=== PATIENT | female | born 1985 | race American Indian/Alaskan Native ===

== ENCOUNTER 2018-07-20 09:42 | Emergency (ER) | payer MEDICAID ==
--- NOTE | 2018-07-20 10:53 | Emergency Department Report ---
HPI - General Chief Complaint: Extremity Injury, Lower Time Seen by Provider: 07/20/18 10:41 - HPI HPI: 33-year-old female presents to the emergency department with a complaint of left knee pain since yesterday when she was playing basketball with her son and thinks that she twisted her knee. She has some pain to the anterior and inside of the knee as well as some mild swelling. She is able to bear weight but has some difficulty with ambulation secondary to the pain. She tried some ibuprofen without any relief. She otherwise denies any past medical history. ED Past Medical Hx - Past Medical History Previous Medical History?: Yes Additional medical history: ovarian cyst - Surgical History Past Surgical History?: Yes Additional Surgical History: ovarian cyst removed - Social History Smoking Status: Never Smoker Substance Use Type: None - Medications Home Medications: Home Medications Medication Instructions Recorded Confirmed Last Taken Type RX: Clindamycin [Clindamycin CAP] 300 mg PO Q8H #20 cap 05/25/16 Unknown Rx RX: Ibuprofen [Motrin 800 MG tab] 800 mg PO Q8HR PRN #30 tablet 05/25/16 Unknown Rx RX: HYDROcodone/APAP 5-325 [[place] 1 each PO Q6HR PRN #10 tablet 07/20/18 Unknown Rx 5-325 mg TAB] ED Review of Systems ROS: Stated complaint: LEFT LEG PAIN Other details as noted in HPI Comment: All other systems reviewed and negative Constitutional: denies: chills, fever Eyes: denies: eye pain, vision change ENT: denies: ear pain, throat pain Respiratory: denies: cough, shortness of breath Cardiovascular: denies: chest pain, palpitations Gastrointestinal: denies: abdominal pain, vomiting Genitourinary: denies: dysuria, discharge Musculoskeletal: joint swelling, arthralgia Skin: denies: rash, lesions Neurological: denies: headache, weakness Physical Exam - Physical Exam Physical Exam: GENERAL: The patient is well-developed well-nourished. HEENT: Normocephalic. Atraumatic. Patient has moist mucous membranes. EYES: Extraocular motions are intact. Pupils are equal and reactive to light bilaterally. NECK: Supple. Trachea is midline. CHEST/LUNGS: Clear to auscultation. There is no respiratory distress noted. HEART/CARDIOVASCULAR: Regular. There is no tachycardia. There is no obvious murmur. ABDOMEN: There is no abdominal distention. SKIN: Skin is warm and dry. NEURO: The patient is awake, alert, and oriented. The patient is cooperative. The patient has normal speech. MUSCULOSKELETAL: There is tenderness to palpation of the left knee. Negative anterior and posterior drawer test and no laxity with valgus or varus stress of the affected left knee. Decreased range of motion of the left knee secondary to pain. ED Medical Decision Making - Radiology Data Radiology results: image reviewed interpreted by me: X-ray of the left knee does not show any fracture, dislocation or any acute process. - Medical Decision Making Patient presents with some left knee pain after playing basketball with her son. There is some mild swelling but there is no obvious deformity. Negative anterior and posterior drawer test and no laxity with valgus or varus stress. X-ray of the left knee does not show any fracture, dislocation or any acute process. The patient was placed in a knee immobilizer and given crutches to be nonweightbearing. She was given referrals for orthopedists. She will return to the ER with any worsening of her symptoms or any acute distress. - Differential Diagnosis fracture, dislocation, contusion, sprain, strain Critical Care Time: No Critical care attestation.: If time is entered above; I have spent that time in minutes in the direct care of this critically ill patient, excluding procedure time. ED Disposition Clinical Impression: Left knee pain Qualifiers: Chronicity: acute Qualified Code(s): M25.562 - Pain in left knee Disposition: DC-01 TO HOME OR SELFCARE Is pt being admited?: No Condition: Stable Instructions: Knee Sprain (ED), Arthralgia (ED) Additional Instructions: Please follow up with a orthopedist in the next few days. Return to the emergency Department with any worsening of your symptoms or any acute distress. You have been prescribed a medication that can be sedating. Therefore, this medication cannot be taken prior to driving, working, being responsible for children, and cannot be mixed with alcohol of any quantity. Prescriptions: RX: HYDROcodone/APAP 5-325 [[place] 5-325 mg TAB] 1 each PO Q6HR PRN #10 tablet PRN Reason: Pain Referrals: RATNA BAUTISTA MD [Staff Physician] - 2-3 Days [facility] [Provider Group] - 2-3 Days Forms: Work/School Release Form(ED) Time of Disposition: 11:52
--- NOTE | 2018-07-20 11:47 | XRay Report ---
LEFT KNEE, 3 views: History: Left knee pain. The bony architecture is intact without evidence of fracture or dislocation. No significant soft tissue abnormality is seen. IMPRESSION: Left knee within normal limits.
[2018-07-20 12:28] VITALS: BP 148/99
== END 2018-07-20 12:29 | disposition home or self-care (01) ==
LOC: ED 09:42
DX: M25.562 Pain in left knee (principal); X50.9XXA Other and unspecified overexertion or strenuous movements or postures, initial encounter; Y93.67 Activity, basketball; Y92.320 Baseball field as the place of occurrence of the external cause; Y99.8 Other external cause status

== ENCOUNTER 2018-12-08 07:51 | Emergency (ER) | payer MEDICAID ==
[2018-12-08 07:59] VITALS: BP 105/65
[2018-12-08] MEDS ORDERED: TYLENOL PO ONE (07:59)
[2018-12-08] MEDS ORDERED: TYLENOL ONE (08:03)
[2018-12-08] MEDS ORDERED: MORPHINE IM ONE (08:07)
[2018-12-08] MEDS ORDERED: DECADRON IM ONE (08:07)
[2018-12-08] MEDS ORDERED: MORPHINE IV ONE (08:09)
[2018-12-08] MEDS ORDERED: DECADRON IV ONE (08:09)
[2018-12-08] MEDS ORDERED: CLEOCIN 600 MG/50 mL 600 MG/50 ML BAG IV ONE (08:09)
[2018-12-08] MEDS ORDERED: ZOFRAN IV ONE (08:09)
[2018-12-08] MEDS ORDERED: NACL 0.9% 1000 ML 1,000 ML IV ONE (08:09)
--- NOTE | 2018-12-08 09:05 | Emergency Department Report ---
ED ENT HPI - General Chief complaint: Sore Throat Stated complaint: THROAT SORE Time Seen by Provider: 12/08/18 08:07 Source: patient Mode of arrival: Ambulatory Limitations: No Limitations - History of Present Illness Initial comments: Patient is a 33-year-old female who is presenting with sore throat. Patient states pain is 8 out of 10 in severity is worse with swallowing. Patient has been unable to eat or drink well for the last 2 days secondary to pain. Patient has had fevers chills and mild nausea but denies vomiting diarrhea neck stiffness. Patient states she has associated body aches. Patient denies cough - Related Data Previous Rx's Medication Instructions Recorded Last Taken Type Clindamycin [Clindamycin CAP] 300 mg PO Q8H #20 cap 05/25/16 Unknown Rx Ibuprofen [Motrin 800 MG tab] 800 mg PO Q8HR PRN #30 tablet 05/25/16 Unknown Rx HYDROcodone/APAP 5-325 [[place] 1 each PO Q6HR PRN #10 tablet 07/20/18 Unknown Rx 5-325 mg TAB] traMADol [Ultram] 50 mg PO Q6HR PRN #12 tablet 10/18/18 Unknown Rx Clindamycin [Clindamycin CAP] 300 mg PO Q8H #21 cap 12/08/18 Unknown Rx HYDROcodone/ACETAMINOPHEN 15 ml PO Q6H PRN #150 solution 12/08/18 Unknown Rx [Hydrocodon-Acetamin 7.5-325/15] Allergies Allergy/AdvReac Type Severity Reaction Status Date / Time amoxicillin [Amoxicillin] Allergy Rash Verified 12/08/18 07:53 ketorolac tromethamine Allergy Itching Verified 12/08/18 07:53 [From Toradol] ED Dental HPI - General Chief complaint: Sore Throat Stated complaint: THROAT SORE Time Seen by Provider: 12/08/18 08:07 Source: patient Mode of arrival: Ambulatory Limitations: No Limitations - Related Data Previous Rx's Medication Instructions Recorded Last Taken Type Clindamycin [Clindamycin CAP] 300 mg PO Q8H #20 cap 05/25/16 Unknown Rx Ibuprofen [Motrin 800 MG tab] 800 mg PO Q8HR PRN #30 tablet 05/25/16 Unknown Rx HYDROcodone/APAP 5-325 [[place] 1 each PO Q6HR PRN #10 tablet 07/20/18 Unknown Rx 5-325 mg TAB] traMADol [Ultram] 50 mg PO Q6HR PRN #12 tablet 10/18/18 Unknown Rx Clindamycin [Clindamycin CAP] 300 mg PO Q8H #21 cap 12/08/18 Unknown Rx HYDROcodone/ACETAMINOPHEN 15 ml PO Q6H PRN #150 solution 12/08/18 Unknown Rx [Hydrocodon-Acetamin 7.5-325/15] Allergies Allergy/AdvReac Type Severity Reaction Status Date / Time amoxicillin [Amoxicillin] Allergy Rash Verified 12/08/18 07:53 ketorolac tromethamine Allergy Itching Verified 12/08/18 07:53 [From Toradol] ED Review of Systems ROS: Stated complaint: THROAT SORE Other details as noted in HPI Comment: All other systems reviewed and negative ED Past Medical Hx - Past Medical History Previous Medical History?: No Additional medical history: ovarian cyst - Surgical History Additional Surgical History: ovarian cyst removed - Social History Smoking Status: Never Smoker Substance Use Type: None - Medications Home Medications: Home Medications Medication Instructions Recorded Confirmed Last Taken Type Clindamycin [Clindamycin CAP] 300 mg PO Q8H #20 cap 05/25/16 Unknown Rx Ibuprofen [Motrin 800 MG tab] 800 mg PO Q8HR PRN #30 tablet 05/25/16 Unknown Rx HYDROcodone/APAP 5-325 [[place] 1 each PO Q6HR PRN #10 tablet 07/20/18 Unknown Rx 5-325 mg TAB] traMADol [Ultram] 50 mg PO Q6HR PRN #12 tablet 10/18/18 Unknown Rx Clindamycin [Clindamycin CAP] 300 mg PO Q8H #21 cap 12/08/18 Unknown Rx HYDROcodone/ACETAMINOPHEN 15 ml PO Q6H PRN #150 solution 12/08/18 Unknown Rx [Hydrocodon-Acetamin 7.5-325/15] ED Physical Exam - General Limitations: No Limitations General appearance: alert, in no apparent distress - Head Head exam: Present: atraumatic, normocephalic - Eye Eye exam: Present: normal appearance - ENT ENT exam: Present: mucous membranes moist - Expanded ENT Exam Expanded Mouth exam: Present: tongue normal. Absent: drooling, muffled voice, tongue elevation Throat exam: Positive: tonsillar erythema, tonsillomegaly, tonsillar exudate. Negative: normal inspection, R peritonsillar mass, L peritonsillar mass - Neck Neck exam: Present: normal inspection, lymphadenopathy - Respiratory Respiratory exam: Present: normal lung sounds bilaterally. Absent: respiratory distress, wheezes, rales, rhonchi - Cardiovascular Cardiovascular Exam: Present: regular rate, normal rhythm. Absent: systolic murmur, diastolic murmur, rubs, gallop - GI/Abdominal GI/Abdominal exam: Present: soft, normal bowel sounds. Absent: distended, tenderness, guarding, rebound - Extremities Exam Extremities exam: Present: normal inspection - Back Exam Back exam: Present: normal inspection - Neurological Exam Neurological exam: Present: alert, oriented X3 - Psychiatric Psychiatric exam: Present: normal affect, normal mood - Skin Skin exam: Present: warm, dry, intact, normal color. Absent: rash ED Course Vital Signs 12/08/18 07:57 Temperature 101.5 F H Pulse Rate 107 H Respiratory 18 Rate Blood Pressure 105/65 O2 Sat by Pulse 100 Oximetry ED Medical Decision Making - Medical Decision Making Patient meets [facility] criteria for empiric treatment with antibiotics. Patient does have some tonsillar swelling erythema and exudate. Patient states she is h aving a difficult time swallowing secondary to pain. Patient given normal saline for hydration a shot of Decadron to help reduce inflammation and swelling as well as morphine for pain control. Patient started on clindamycin and be discharged after fluid. Critical care attestation.: If time is entered above; I have spent that time in minutes in the direct care of this critically ill patient, excluding procedure time. ED Disposition Clinical Impression: Mild dehydration Acute pharyngitis Qualifiers: Pharyngitis/tonsillitis etiology: other specified organisms Qualified Code(s): J02.8 - Acute pharyngitis due to other specified organisms Disposition: - TO HOME OR SELFCARE Is pt being admited?: No Does the pt Need Aspirin: No Condition: Stable Instructions: Pharyngitis (ED) Referrals: QUANG LEWIS MD [Primary Care Provider] - 3-5 Days Time of Disposition: 09:05
== END 2018-12-08 09:24 | disposition home or self-care (01) ==
LOC: ED 07:51
DX: J02.9 Acute pharyngitis, unspecified (principal); E86.0 Dehydration; Z87.42 Personal history of other diseases of the female genital tract; Z88.1 Allergy status to other antibiotic agents; Z88.6 Allergy status to analgesic agent
CPT/HCPCS: 96365; 96375; 99283; J1100; J2270; J2405; J7030

== ENCOUNTER 2019-01-24 10:44 | Emergency (ER) | payer MEDICAID ==
--- NOTE | 2019-01-24 11:00 | Emergency Department Report ---
Blank Doc - Documentation Documentation: This is a 34-year-old female that presents with right knee pain. This initial assessment/diagnostic orders/clinical plan/treatment(s) is/are subject to change based on patient's health status, clinical progression and re- assessment by fellow clinical providers in the ED. Further treatment and workup at subsequent clinical providers discretion. Patient/guardians urged not to elope from the ED as their condition may be serious if not clinically assessed and managed. Initial orders include: 1- Patient sent to [facility] for further evaluation and treatment 2- xrays
--- NOTE | 2019-01-24 11:36 | XRay Report ---
Right knee, 3 views INDICATION: Right knee pain for 3 days. COMPARISON: None. IMPRESSION: No acute osseous or soft tissue abnormality. No significant DJD. Signer Name: Kenneth Jaime Jr, MD Signed: 01/24/2019 11:32 AM Workstation Name: [id number]
--- NOTE | 2019-01-24 13:57 | Emergency Department Report ---
ED Lower Extremity HPI - General Chief Complaint: Extremity Injury, Lower Stated Complaint: RT LEG CYST/PAIN Time Seen by Provider: 01/24/19 10:59 Source: patient Mode of arrival: Ambulatory Limitations: No Limitations - History of Present Illness Initial Comments: 34-year-old female presents to ED with right knee pain 2 days. Patient states she fell onto her knee while on stairs. Patient reported she has had chronic pain in this knee off and on for a while. MD Complaint: knee injury -: days(s) (2) Injury: Knee: Right Type of Injury: blunt Severity: moderate Worsens With: weight bearing, movement, palpation Context: fall, other (chronic pain) Associated Symptoms: swelling. denies: snap/pop sensation - Related Data Previous Rx's Medication Instructions Recorded Last Taken Type Clindamycin [Clindamycin CAP] 300 mg PO Q8H #20 cap 05/25/16 Unknown Rx Ibuprofen [Motrin 800 MG tab] 800 mg PO Q8HR PRN #30 tablet 05/25/16 Unknown Rx HYDROcodone/APAP 5-325 [[place] 1 each PO Q6HR PRN #10 tablet 07/20/18 Unknown Rx 5-325 mg TAB] traMADol [Ultram] 50 mg PO Q6HR PRN #12 tablet 10/18/18 Unknown Rx Clindamycin [Clindamycin CAP] 300 mg PO Q8H #21 cap 12/08/18 Unknown Rx traMADol [Ultram] 50 mg PO Q6HR PRN #12 tablet 12/08/18 Unknown Rx traMADol [Ultram] 50 mg PO Q6HR PRN #7 tablet 01/24/19 Unknown Rx Allergies Allergy/AdvReac Type Severity Reaction Status Date / Time amoxicillin [Amoxicillin] Allergy Rash Verified 01/24/19 10:47 ketorolac tromethamine Allergy Itching Verified 01/24/19 10:47 [From Toradol] ED Review of Systems ROS: Stated complaint: RT LEG CYST/PAIN Other details as noted in HPI Comment: All other systems reviewed and negative Musculoskeletal: as per HPI ED Past Medical Hx - Past Medical History Previous Medical History?: No Additional medical history: ovarian cyst - Surgical History Past Surgical History?: Yes Additional Surgical History: ovarian cyst removed - Social History Smoking Status: Former Smoker Substance Use Type: None - Medications Home Medications: Home Medications Medication Instructions Recorded Confirmed Last Taken Type Clindamycin [Clindamycin CAP] 300 mg PO Q8H #20 cap 05/25/16 Unknown Rx Ibuprofen [Motrin 800 MG tab] 800 mg PO Q8HR PRN #30 tablet 05/25/16 Unknown Rx HYDROcodone/APAP 5-325 [[place] 1 each PO Q6HR PRN #10 tablet 07/20/18 Unknown Rx 5-325 mg TAB] traMADol [Ultram] 50 mg PO Q6HR PRN #12 tablet 10/18/18 Unknown Rx Clindamycin [Clindamycin CAP] 300 mg PO Q8H #21 cap 12/08/18 Unknown Rx traMADol [Ultram] 50 mg PO Q6HR PRN #12 tablet 12/08/18 Unknown Rx traMADol [Ultram] 50 mg PO Q6HR PRN #7 tablet 01/24/19 Unknown Rx ED Physical Exam - General Limitations: No Limitations General appearance: alert, in no apparent distress - Head Head exam: Present: atraumatic, normocephalic - Eye Eye exam: Present: normal appearance, PERRL, EOMI - ENT ENT exam: Present: mucous membranes moist - Neck Neck exam: Present: normal inspection - Respiratory Respiratory exam: Present: normal lung sounds bilaterally. Absent: respiratory distress - Cardiovascular Cardiovascular Exam: Present: regular rate, normal rhythm - GI/Abdominal GI/Abdominal exam: Absent: distended - Extremities Exam Extremities exam: Present: other (mild swelling to the right knee, decreased extension secondary to pain, tender to palpation) - Neurological Exam Neurological exam: Present: alert, oriented X3. Absent: motor sensory deficit - Psychiatric Psychiatric exam: Present: normal affect, normal mood - Skin Skin exam: Present: warm, dry, intact, normal color ED Course Vital Signs 01/24/19 01/24/19 11:00 14:18 Temperature 98.5 F 98.2 F Pulse Rate 89 79 Respiratory 18 Rate Blood Pressure 147/91 Blood Pressure 143/89 [Left] O2 Sat by Pulse 100 Oximetry ED Lower Extremity MDM - Differential Diagnosis arthritis, sprain, fracture Critical care attestation.: If time is entered above; I have spent that time in minutes in the direct care of this critically ill patient, excluding procedure time. ED Disposition Clinical Impression: Right knee sprain Disposition: DC-01 TO HOME OR SELFCARE Is pt being admited?: No Condition: Stable Instructions: Knee Sprain (ED) Prescriptions: traMADol [Ultram] 50 mg PO Q6HR PRN #7 tablet PRN Reason: Pain Referrals: RATNA BAUTISTA MD [Staff Physician] - 3-5 Days Time of Disposition: 13:57
[2019-01-24 14:20] VITALS: BP 143/89
== END 2019-01-24 14:22 | disposition home or self-care (01) ==
LOC: ED 10:44
DX: S83.91XA Sprain of unspecified site of right knee, initial encounter (principal); W10.9XXA Fall (on) (from) unspecified stairs and steps, initial encounter; Y93.89 Activity, other specified; Y92.89 Other specified places as the place of occurrence of the external cause; Y99.8 Other external cause status
CPT/HCPCS: 99283

== ENCOUNTER 2019-02-12 21:12 | Emergency (ER) | payer OTHER, MEDICAID ==
[2019-02-12 21:52] VITALS: BP 134/83
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
[2019-02-13] MEDS ORDERED: NORCO 7.5/325 PO ONE (02:53)
[2019-02-13] MEDS ORDERED: ZOFRAN ODT PO ONE (02:53)
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
== END 2019-02-13 04:10 | disposition home or self-care (01) ==
LOC: ED 21:12
DX: M54.5 Low back pain (principal); M54.2 Cervicalgia; M62.830 Muscle spasm of back; Z79.899 Other long term (current) drug therapy; Z88.6 Allergy status to analgesic agent; Z88.1 Allergy status to other antibiotic agents; V43.62XA Car passenger injured in collision with other type car in traffic accident, initial encounter; Y93.89 Activity, other specified; Y92.488 Other paved roadways as the place of occurrence of the external cause; Y99.8 Other external cause status
CPT/HCPCS: 72040; 72100; 99283; Q0162

== ENCOUNTER 2019-04-15 13:46 | Emergency (ER) | payer BC, MEDICAID ==
[2019-04-15 15:03] VITALS: BP 136/87
--- NOTE | 2019-04-15 17:19 | Emergency Department Report ---
ED General Adult HPI - General Chief complaint: Dental/Oral Stated complaint: TOOTHACHE Time Seen by Provider: 04/15/19 17:11 Source: patient Mode of arrival: Ambulatory Limitations: No Limitations - History of Present Illness Initial comments: Is a 34-year-old [place] female who states she broke tooth #30 some time ago but now has severe pain in this area of her jaw and face. Patient has no difficulty swallowing. Pain is 8 out of 10 in severity. - Related Data Previous Rx's Medication Instructions Recorded Last Taken Type Clindamycin [Clindamycin CAP] 300 mg PO Q8H #20 cap 05/25/16 Unknown Rx Ibuprofen [Motrin 800 MG tab] 800 mg PO Q8HR PRN #30 tablet 05/25/16 Unknown Rx HYDROcodone/APAP 5-325 [[place] 1 each PO Q6HR PRN #10 tablet 07/20/18 Unknown Rx 5-325 mg TAB] traMADol [Ultram] 50 mg PO Q6HR PRN #12 tablet 10/18/18 Unknown Rx Clindamycin [Clindamycin CAP] 300 mg PO Q8H #21 cap 12/08/18 Unknown Rx traMADol [Ultram] 50 mg PO Q6HR PRN #12 tablet 12/08/18 Unknown Rx traMADol [Ultram] 50 mg PO Q6HR PRN #7 tablet 01/24/19 Unknown Rx Acetaminophen/Codeine [Tylenol 1 tab PO Q6H PRN #12 tab 02/13/19 Unknown Rx /Codeine # 3 tab] tiZANidine [Zanaflex 4mg TAB] 4 mg PO Q8H PRN #21 tablet 02/13/19 Unknown Rx Clindamycin [Clindamycin CAP] 300 mg PO Q8H #21 cap 04/15/19 Unknown Rx traMADol [Ultram] 50 mg PO Q6HR PRN #10 tablet 04/15/19 Unknown Rx Allergies Allergy/AdvReac Type Severity Reaction Status Date / Time amoxicillin [Amoxicillin] Allergy Rash Verified 01/24/19 10:47 ketorolac tromethamine Allergy Itching Verified 01/24/19 10:47 [From Toradol] ED Review of Systems ROS: Stated complaint: TOOTHACHE Other details as noted in HPI Comment: All other systems reviewed and negative ED Past Medical Hx - Past Medical History Previous Medical History?: Yes Additional medical history: ovarian cyst - Surgical History Past Surgical History?: Yes Additional Surgical History: ovarian cyst removed - Social History Smoking Status: Current Every Day Smoker Substance Use Type: None - Medications Home Medications: Home Medications Medication Instructions Recorded Confirmed Last Taken Type Clindamycin [Clindamycin CAP] 300 mg PO Q8H #20 cap 05/25/16 Unknown Rx Ibuprofen [Motrin 800 MG tab] 800 mg PO Q8HR PRN #30 tablet 05/25/16 Unknown Rx HYDROcodone/APAP 5-325 [[place] 1 each PO Q6HR PRN #10 tablet 07/20/18 Unknown Rx 5-325 mg TAB] traMADol [Ultram] 50 mg PO Q6HR PRN #12 tablet 10/18/18 Unknown Rx Clindamycin [Clindamycin CAP] 300 mg PO Q8H #21 cap 12/08/18 Unknown Rx traMADol [Ultram] 50 mg PO Q6HR PRN #12 tablet 12/08/18 Unknown Rx traMADol [Ultram] 50 mg PO Q6HR PRN #7 tablet 01/24/19 Unknown Rx Acetaminophen/Codeine [Tylenol 1 tab PO Q6H PRN #12 tab 02/13/19 Unknown Rx /Codeine # 3 tab] tiZANidine [Zanaflex 4mg TAB] 4 mg PO Q8H PRN #21 tablet 02/13/19 Unknown Rx Clindamycin [Clindamycin CAP] 300 mg PO Q8H #21 cap 04/15/19 Unknown Rx traMADol [Ultram] 50 mg PO Q6HR PRN #10 tablet 04/15/19 Unknown Rx ED Physical Exam - General Limitations: No Limitations General appearance: alert, in no apparent distress - Head Head exam: Present: atraumatic, normocephalic - Expanded Head Exam Expanded 1 - Pain is swelling to the right lower jaw. - Eye Eye exam: Present: normal appearance - ENT ENT exam: Present: mucous membranes moist - Expanded ENT Exam Expanded 1 - Fractured, Dental Tenderness - Neck Neck exam: Present: normal inspection - Respiratory Respiratory exam: Present: normal lung sounds bilaterally. Absent: respiratory distress - Cardiovascular Cardiovascular Exam: Present: regular rate, normal rhythm. Absent: systolic murmur, diastolic murmur, rubs, gallop - GI/Abdominal GI/Abdominal exam: Present: soft, normal bowel sounds - Extremities Exam Extremities exam: Present: normal inspection - Back Exam Back exam: Present: normal inspection - Neurological Exam Neurological exam: Present: alert, oriented X3 - Psychiatric Psychiatric exam: Present: normal affect, normal mood - Skin Skin exam: Present: warm, dry, intact, normal color. Absent: rash ED Course Vital Signs 04/15/19 15:01 Temperature 98.3 F Pulse Rate 82 Respiratory 16 Rate Blood Pressure 136/87 O2 Sat by Pulse 99 Oximetry ED Medical Decision Making - Medical Decision Making Patient likely with a fractured tooth which is lead to a dental abscess with some mild facial cellulitis. Patient will be started on antibiotics discharged home. Critical care attestation.: If time is entered above; I have spent that time in minutes in the direct care of this critically ill patient, excluding procedure time. ED Disposition Clinical Impression: Dental abscess, Facial cellulitis, Tooth fracture Disposition: - TO HOME OR SELFCARE Is pt being admited?: No Does the pt Need Aspirin: No Condition: Stable Instructions: Dental Abscess (ED) Additional Instructions: Please see the list of dentists Time of Disposition: 17:19
== END 2019-04-15 17:41 | disposition home or self-care (01) ==
LOC: ED 13:46
DX: S02.5XXA Fracture of tooth (traumatic), initial encounter for closed fracture (principal); L03.211 Cellulitis of face; F17.200 Nicotine dependence, unspecified, uncomplicated; Z88.1 Allergy status to other antibiotic agents; Z88.8 Allergy status to other drugs, medicaments and biological substances; Z79.1 Long term (current) use of non-steroidal anti-inflammatories (NSAID); Z79.899 Other long term (current) drug therapy; X58.XXXA Exposure to other specified factors, initial encounter; Y93.89 Activity, other specified; Y92.89 Other specified places as the place of occurrence of the external cause; Y99.8 Other external cause status
CPT/HCPCS: 99282

== ENCOUNTER 2019-05-23 16:16 | Emergency (ER) | payer BC ==
[2019-05-23] MEDS ORDERED: IBUPROFEN 600 MG TAB PO ONE ×2 (16:29→16:32)
--- NOTE | 2019-05-23 16:29 | Event Note ---
ED Screening Note Date of service: 05/23/19 Time: 16:28 ED Screening Note: 34 y/o female comes in for rectal pain times 1 week. This initial assessment/diagnostic orders/clinical plan/treatment(s) is/are subject to change based on patients health status, clinical progression and re-assessment by fellow clinical providers in the ED. Further treatment and workup at subsequent clinical providers discretion. Patient/guardian urged not to elope from the ED as their condition may be serious if not clinically assessed and managed. Initial orders include:
[2019-05-23] MEDS ORDERED: LIDOCAINE JELLY (2%) 5 ML TOPICAL TP ONE (18:25)
--- NOTE | 2019-05-23 18:25 | Emergency Department Report ---
<JERROD THAO OG - Last Filed: 05/23/19 18:44> ED General Adult HPI - General Chief complaint: Abdominal Pain Stated complaint: RECTUM/PELVIC PAIN Time Seen by Provider: 05/23/19 16:28 Source: patient Mode of arrival: Ambulatory Limitations: No Limitations - History of Present Illness Initial comments: This is a 34-year-old -[place] female who presents to the emergency room with rectal pain for one week. Patient reports pain is worse with bowel movements and sitting. Reports sensation of constipation. She reports a history of hemorrhoids with each but has not had a flare in years. She denies nausea, vomiting, diarrhea, abdominal pain, rectal bleeding/tarry stools, or urinary symptoms. Onset/Timin -: week(s) Severity scale (0 -10): 10 Quality: stabbing Consistency: constant Improves with: none Worsens with: other (sitting or bowel movements) Associated Symptoms: denies other symptoms Treatments Prior to Arrival: none - Related Data Previous Rx's Medication Instructions Recorded Last Taken Type Clindamycin [Clindamycin CAP] 300 mg PO Q8H #20 cap 05/25/16 Unknown Rx Ibuprofen [Motrin 800 MG tab] 800 mg PO Q8HR PRN #30 tablet 05/25/16 Unknown Rx HYDROcodone/APAP 5-325 [[place] 1 each PO Q6HR PRN #10 tablet 07/20/18 Unknown Rx 5-325 mg TAB] traMADoL [Ultram] 50 mg PO Q6HR PRN #12 tablet 10/18/18 Unknown Rx Clindamycin [Clindamycin CAP] 300 mg PO Q8H #21 cap 12/08/18 Unknown Rx traMADoL [Ultram] 50 mg PO Q6HR PRN #12 tablet 12/08/18 Unknown Rx traMADoL [Ultram] 50 mg PO Q6HR PRN #7 tablet 01/24/19 Unknown Rx Acetaminophen/Codeine [Tylenol 1 tab PO Q6H PRN #12 tab 02/13/19 Unknown Rx /Codeine # 3 tab] tiZANidine [Zanaflex 4mg TAB] 4 mg PO Q8H PRN #21 tablet 02/13/19 Unknown Rx Clindamycin [Clindamycin CAP] 300 mg PO Q8H #21 cap 04/15/19 Unknown Rx traMADoL [Ultram] 50 mg PO Q6HR PRN #10 tablet 04/15/19 Unknown Rx Hydrocortisone Acetate 25 mg RC BID #14 supp.rect 05/23/19 Unknown Rx Hydrocortisone [Proctosol-Hc 2.5% 10 applic TP BID #1 [email or web address] 05/23/19 Unknow n Rx TOP CREAM] Allergies Allergy/AdvReac Type Severity Reaction Status Date / Time amoxicillin [Amoxicillin] Allergy Rash Verified 05/23/19 16:18 ketorolac tromethamine Allergy Itching Verified 05/23/19 16:18 [From Toradol] ED Review of Systems Constitutional: denies: chills, fever Respiratory: denies: cough, shortness of breath, wheezing Cardiovascular: denies: chest pain, palpitations Gastrointestinal: constipation, other (rectal pain). denies: abdominal pain, nausea, diarrhea Genitourinary: denies: urgency, dysuria, discharge Musculoskeletal: denies: back pain, joint swelling, arthralgia Skin: denies: rash, lesions Neurological: denies: headache, weakness, paresthesias Psychiatric: denies: anxiety, depression ED Past Medical Hx - Past Medical History Additional medical history: ovarian cyst - Surgical History Additional Surgical History: ovarian cyst removed - Social History Smoking Status: Never Smoker Substance Use Type: None - Medications Home Medications: Home Medications Medication Instructions Recorded Confirmed Last Taken Type Clindamycin [Clindamycin CAP] 300 mg PO Q8H #20 cap 05/25/16 Unknown Rx Ibuprofen [Motrin 800 MG tab] 800 mg PO Q8HR PRN #30 tablet 05/25/16 Unknown Rx HYDROcodone/APAP 5-325 [[place] 1 each PO Q6HR PRN #10 tablet 07/20/18 Unknown Rx 5-325 mg TAB] traMADoL [Ultram] 50 mg PO Q6HR PRN #12 tablet 10/18/18 Unknown Rx Clindamycin [Clindamycin CAP] 300 mg PO Q8H #21 cap 12/08/18 Unknown Rx traMADoL [Ultram] 50 mg PO Q6HR PRN #12 tablet 12/08/18 Unknown Rx traMADoL [Ultram] 50 mg PO Q6HR PRN #7 tablet 01/24/19 Unknown Rx Acetaminophen/Codeine [Tylenol 1 tab PO Q6H PRN #12 tab 02/13/19 Unknown Rx /Codeine # 3 tab] tiZANidine [Zanaflex 4mg TAB] 4 mg PO Q8H PRN #21 tablet 02/13/19 Unknown Rx Clindamycin [Clindamycin CAP] 300 mg PO Q8H #21 cap 04/15/19 Unknown Rx traMADoL [Ultram] 50 mg PO Q6HR PRN #10 tablet 04/15/19 Unknown Rx Hydrocortisone Acetate 25 mg RC BID #14 supp.rect 05/23/19 Unknown Rx Hydrocortisone [Proctosol-Hc 2.5% 10 applic TP BID #1 crm.[email or web address] 05/23/19 Unknown Rx TOP CREAM] ED Physical Exam - General Limitations: No Limitations General appearance: alert, in no apparent distress, obese - Respiratory Respiratory exam: Present: normal lung sounds bilaterally. Absent: respiratory distress - Cardiovascular Cardiovascular Exam: Present: regular rate, normal rhythm. Absent: systolic murmur, diastolic murmur, rubs, gallop - GI/Abdominal GI/Abdominal exam: Present: soft, normal bowel sounds. Absent: distended, tenderness, guarding, rebound, rigid, organomegaly, mass, bruit, pulsatile mass, hernia - Rectal Rectal exam: Present: normal rectal tone, hemorrhoids (external beefy red hemorrhoids, tenderness) - Back Exam Back exam: Absent: CVA tenderness (R), CVA tenderness (L) - Neurological Exam Neurological exam: Present: alert, oriented X3, normal gait - Psychiatric Psychiatric exam: Present: normal affect, normal mood - Skin Skin exam: Present: warm, dry, intact, normal color. Absent: rash ED Medical Decision Making - Medical Decision Making Patient is stable and examined by me. Vitals are stable. Past medical history of hemorrhoids and ovarian cyst. External hemorrhoids on focal exam palpated, beefy red, tender, no signs of thrombosis. No acute signs of distress noted. Applied topical lidocaine. Start Proctofoam topical and hydrocortisone suppository. Instructed to follow-up with primary care doctor. Given referral to general surgery for worsening symptoms. Patient agrees to ED plan of care. Follow up with PCP in 2-3 days. Patient discharged home stable. ED Disposition Clinical Impression: Anal or rectal pain Hemorrhoids Qualifiers: Hemorrhoid type: first degree Qualified Code(s): K64.0 - First degree hemorrhoids Disposition: TO HOME OR SELFCARE Is pt being admited?: No Condition: Stable Instructions: Hemorrhoids (ED) Additional Instructions: Increase fiber intake with foods and/or metamucil to avoid constipation. Increase water intake and drink or eat prunes. Take colace daily to soften stool. Follow up with primary care doctor. His symptoms worsen have provided a General surgeon for follow-up. Prescriptions: Hydrocortisone Acetate 25 mg RC BID #14 supp.rect Hydrocortisone [Proctosol-Hc 2.5% TOP CREAM] 10 applic TP BID #1 [email or web address] Referrals: [facility], [facility] [Provider Group] - 3-5 Days LISA DENNISON DO [Staff Physician] - 3-5 Days [facility] [Provider Group] - 3-5 Days [facility] [Provider Group] - 3-5 Days REYNA CALABRESE DO [Staff Physician] - 3-5 Days Forms: Work/School Release Form(ED) Time of Disposition: 18:32 <MARIANNE ABARCA P - Last Filed: 06/03/19 05:33> ED Review of Systems ROS: Stated complaint: RECTUM/PELVIC PAIN Other details as noted in HPI ED Course Vital Signs 05/23/19 05/23/19 16:27 18:39 Temperature 97.5 F L Pulse Rate 81 66 Respiratory 18 18 Rate Blood Pressure 154/103 Blood Pressure 116/75 [Left] O2 Sat by Pulse 100 100 Oximetry ED Medical Decision Making - Medical Decision Making Attestation: Available for consultation Critical care attestation.: If time is entered above; I have spent that time in minutes in the direct care of this critically ill patient, excluding procedure time. ED Disposition Is pt being admited?: No
[2019-05-23 18:40] VITALS: BP 116/75
== END 2019-05-23 18:46 | disposition home or self-care (01) ==
LOC: ED 16:16
DX: K62.89 Other specified diseases of anus and rectum (principal); Z98.890 Other specified postprocedural states; Z79.899 Other long term (current) drug therapy; Z88.1 Allergy status to other antibiotic agents; Z88.6 Allergy status to analgesic agent